=== PATIENT | female | born 1950 | race Two or more races ===

== ENCOUNTER 2019-06-12 12:03 | Outpatient (CLI) | payer OTHER | END 2019-06-12 12:09 | disposition home or self-care (01) | LOC: RAD 12:03 | DX: M54.5 Low back pain (principal) ==

== ENCOUNTER 2021-01-07 08:30 | Outpatient (CLI) | payer OTHER | END 2021-01-07 08:42 | disposition home or self-care (01) | LOC: TOM 08:30 | PROVIDERS: ATTEND Family Medicine | DX: R10.84 Generalized abdominal pain (principal); K59.09 Other constipation | CPT/HCPCS: 74177; Q9965 ==

== ENCOUNTER 2023-12-21 10:53 | Outpatient (CLI) | payer OTHER | END 2023-12-21 10:59 | disposition home or self-care (01) | LOC: SONOGRAMA 10:53 | DX: N81.11 Cystocele, midline (principal) ==

== ENCOUNTER 2024-07-09 11:17 | Emergency (ER) | payer OTHER ==
[~2024-07-09] VITALS: Ht 165.1 cm; Wt 62.6 kg
[2024-07-09] MEDS ORDERED: KETOROLAC TROMETHAMINE 30 MG VIAL IU ONE (14:00)
[2024-07-09] MEDS ORDERED: FAMOtidine 10 MG/ML (4ML VIAL) IV ONE (14:00)
[2024-07-09] MEDS ORDERED: KETOROLAC TROMETHAMINE 30 MG VIAL ONE (14:01)
[2024-07-09] MEDS ORDERED: FAMOTIDINE/PF 20 MG/2 ML VIAL ONE (14:01)
[2024-07-09 14:43] LABS: HEMATOCRIT 34.7 % (36.0-45.00); HEMOGLOBIN 12.2 g/dL (12.0-15.00); MEAN CELL VOLUME 86.1 fL (80.00-100.00); MEAN CORPUSCULAR HEMOGLOBIN 30.2 pg (27.00-32.0); MEAN CORPUSCULAR HGB CONC 35.1 g/dl (32.0-36.0); PLATELET COUNT 260 K/uL (150-450); RED BLOOD COUNT 4.03 M/uL (4.00-6.00); RED CELL DISTRIBUTION WIDTH 12.9 % (11.5-14.5)
[2024-07-09 15:06] LABS: ALBUMIN 3.8 gm/dL (3.4-5.0); BILIRUBIN TOTAL 0.28 mg/dL (0.3-1.2); CALCIUM 8.9 mg/dL (8.5-10.1); CREATININE SERUM 0.77 mg/dL (0.55-1.02); GFR 73.69; GLOBULINA 4.4 G/DL (2.4-3.5); POTASSIUM 3.09 mEq/L (3.5-5.1); TOTAL PROTEIN 8.2 gm/dL (6.4-8.2)
[2024-07-09 15:07] LABS: INR 1.01; PARTIAL THROMBOPLASTIN TIME 30.3 SECONDS (22.0-34.0)
[2024-07-09 15:26] LABS: URINE APPEARANCE Clear; URINE BILIRRUBIN Negative (NEGATIVE); URINE BLOOD Negative; URINE COLOR Yellow; URINE GLUCOSE Negative (NEGATIVE); URINE KETONE Negative (NEGATIVE); URINE LEUKOCYTE Negative; URINE NITRATE Negative; URINE PROTEIN Negative (NEGATIVE); URINE UROBILINOGEN 0.2 E.U./dl
[2024-07-09 15:39] LABS: URINE BACTERIA 31.8 uL (0.0-1933); URINE EPITHELIAL CELLS 6.3 uL (0.0-38.8)
[2024-07-09 15:43] LABS: URINE CAST 0.14 uL (0.0-1.40); URINE RBC 1.4 uL (0.0-20.8); URINE WBC 1.7 uL (0.0-23.2)
[2024-07-09] MEDS ORDERED: PEPCID AC20 MG PO (16:26)
[2024-07-09] MEDS ORDERED: CIPRO500 MG PO (16:26)
[2024-07-09] MEDS ORDERED: METRONIDAZOLE500 MG PO (16:26)
[2024-07-09] MEDS ORDERED: ZOFRAN8 MG PO (16:26)
[2024-07-09] MEDS ORDERED: POTASSIUM BICARBONATE/CIT AC 25 MEQ TABLET.EFF PO ONE (16:30)
== END 2024-07-09 18:51 | disposition home or self-care (01) ==
LOC: ER 11:20
PROVIDERS: General Practice
DX: R10.32 Left lower quadrant pain (principal); R10.13 Epigastric pain; R11.2 Nausea with vomiting, unspecified; K57.32 Diverticulitis of large intestine without perforation or abscess without bleeding
CPT/HCPCS: 36415; 71045; 74177; 99284; Q9965